=== PATIENT | female | born 1970 | race Caucasian/White ===

== ENCOUNTER 2018-07-21 02:45 | Emergency (ER) | payer MEDICAID ==
[~2018-07-21] VITALS: Ht 157.5 cm; Wt 58.1 kg
[2018-07-21 07:35] VITALS: BP 126/78
== END 2018-07-21 08:24 | disposition home or self-care (01) ==
LOC: ER 02:48
DX: J02.9 Acute pharyngitis, unspecified (principal); L03.113 Cellulitis of right upper limb